=== PATIENT | male | born 1940 | race Caucasian/White ===

== ENCOUNTER 2021-03-06 18:15 | Inpatient (IN) | payer OTHER, MEDICARE ==
[2021-03-06 19:12] VITALS: BMI 25.2
[2021-03-06 21:12] LABS: INR 1.2 (0.83-1.09); PROTHROMBIN TIME (PATIENT) 14.5 SEC (9.7-13.0)
[2021-03-06 21:15] LABS: ACTIVATED PTT 27.8 SECONDS (25.2-36.5)
[2021-03-06 21:17] LABS: BASO % 0.8 % (0-2.0); HEMATOCRIT 23.2 % (35.4-49); HEMOGLOBIN 8.2 GM/dL (11.7-16.9); LYMPH % 11.1 % (8-40); MCH 36.2 pg (25.7-33.7); MCHC 35.3 g/dl (32.0-35.9); MEAN CELL VOLUME 102.6 fl (80-96); MEAN PLT VOLUME 7.1 fl (7.5-11.1); MONO % 8.8 % (3.8-10.2); NEUT % 77.3 % (42.8-82.8); PLATELET COUNT 255 K/MM3 (134-434); RBC 2.26 M/mm3 (4.00-5.60); WHITE BLOOD COUNT 4.3 K/mm3 (4.0-10.0)
[2021-03-06 21:20] LABS: CHLORIDE 102 mmol/L (98-107); SODIUM 136 mmol/L (136-145)
[2021-03-06 21:22] LABS: CALCIUM 8.3 mg/dL (8.5-10.1)
[2021-03-06 21:24] LABS: ANION GAP 5 MMOL/L (8-16); BLOOD UREA NITROGEN 25.9 mg/dL (7-18); CO2 30 mmol/L (21-32); GLUCOSE,RANDOM 92 mg/dL (74-106)
[2021-03-06 21:27] LABS: BILIRUBIN,TOTAL 0.3 mg/dL (0.2-1); CREATININE 0.3 mg/dL (0.55-1.3); SGOT/AST 332 U/L (15-37); SGPT/ALT 477 U/L (13-61); TOT PROT 5.8 g/dl (6.4-8.2)
[2021-03-06 21:29] LABS: ALK PHOS 263 U/L (45-117)
[2021-03-06 22:11] LABS: PH,URINE >= 9.0 (5.0-8.0); URINE APPEARANCE CLEAR; URINE BILIRUBIN NEGATIVE (NEGATIVE); URINE COLOR YELLOW; URINE GLUCOSE (UA) NEGATIVE (NEGATIVE); URINE KETONE NEGATIVE (NEGATIVE); URINE LEUK ESTERASE NEGATIVE (NEGATIVE); URINE NITRITE NEGATIVE (NEGATIVE); URINE PROTEIN NEGATIVE (NEGATIVE); URINE UROBILINOGEN 0.2 mg/dL (0.2-1.0)
[2021-03-06] MEDS ORDERED: methylPREDNISolone NA SUCC 125 MG/2 ML VIAL IVPB ONE (23:02)
[2021-03-06] MEDS ORDERED: methylPREDNISolone NA SUCC 125 MG/2 ML VIAL ONE (23:06)
[2021-03-07 08:10] LABS: BASO % 0.5 % (0-2.0); EOS % 0.7 % (0-4.5); HEMATOCRIT 23.9 % (35.4-49); HEMOGLOBIN 8.5 GM/dL (11.7-16.9); LYMPH % 10.9 % (8-40); MCHC 35.4 g/dl (32.0-35.9); MEAN CELL VOLUME 101.8 fl (80-96); MEAN PLT VOLUME 7.4 fl (7.5-11.1); MONO % 5.5 % (3.8-10.2); NEUT % 82.4 % (42.8-82.8); PLATELET COUNT 279 K/MM3 (134-434); RBC 2.35 M/mm3 (4.00-5.60); RDW 19.8 % (11.9-15.9)
[2021-03-07 08:21] LABS: ALBUMIN 2.1 g/dl (3.4-5.0); CALCIUM 9.1 mg/dL (8.5-10.1)
[2021-03-07 08:22] LABS: BLOOD UREA NITROGEN 21.1 mg/dL (7-18)
[2021-03-07 08:24] LABS: CREATININE 0.2 mg/dL (0.55-1.3)
[2021-03-07 08:25] LABS: BILIRUBIN,TOTAL 0.3 mg/dL (0.2-1)
[2021-03-07] MEDS ORDERED: ASCORBIC ACID 500 MG TABLET (FP) ONE (09:36)
[2021-03-07] MEDS ORDERED: FOLIC ACID 1 MG TABLET (FP) ONE (09:37)
[2021-03-07] MEDS ORDERED: ENOXAPARIN NA (PORCINE) 40 MG/0.4 ML DISP.SYRIN SQ ONE (09:37)
[2021-03-07] MEDS ORDERED: MAGNESIUM OXIDE 400 MG TABLET (FP) ONE (09:37)
[2021-03-07] MEDS ORDERED: DEXAMETHASONE 4 MG TABLET (FP) ONE (09:37)
[2021-03-07] MEDS ORDERED: MULTIVITAMINS (DAILY MVI) TABLET (FP) ONE (09:37)
[2021-03-07] MEDS: ENOXAPARIN NA (PORCINE) 40 MG/0.4 ML DISP.SYRIN SQ SCH (09:58)
[2021-03-07] MEDS: ASCORBIC ACID 500 MG TABLET (FP) PO SCH (09:58)
[2021-03-07] MEDS: levETIRAcetam 500 MG/5 ML ORAL SOLUTION (UNIT-DOSE CUPS) PEG SCH ×2 (09:58→22:58)
[2021-03-07] MEDS: FOLIC ACID 1 MG TABLET (FP) PO SCH (09:58)
[2021-03-07] MEDS: DEXAMETHASONE 4 MG TABLET (FP) PO SCH ×2 (09:58→22:23)
[2021-03-07] MEDS: MAGNESIUM OXIDE 400 MG TABLET (FP) PO SCH (09:58)
[2021-03-07] MEDS: MULTIVITAMINS (DAILY MVI) TABLET (FP) PO SCH (09:58)
[2021-03-07] MEDS: SODIUM CHLORIDE 1 GM TABLET PO SCH (10:31)
[2021-03-07] MEDS: FLUDROCORTISONE ACETATE 0.1 MG TABLET (FP) PO SCH ×2 (10:31→22:23)
[2021-03-07] MEDS: PANTOPRAZOLE SODIUM 40 MG VIAL IVPUSH SCH (16:00)
[2021-03-07] MEDS ORDERED: PANTOPRAZOLE SODIUM 40 MG VIAL ONE (16:14)
[2021-03-07] MEDS ORDERED: ACETAMINOPHEN 650 MG/20.3 ML ORAL SOLUTION (CUPS) PO ONE (17:08)
[2021-03-07] MEDS ORDERED: FAMOTIDINE 20 MG/50 ML IVPB 20 MG/50 ML MG IVPB ONE (18:27)
[2021-03-07] MEDS: FAMOTIDINE 20 MG/50 ML IVPB 20 MG/50 ML MG IVPB SCH ×2 (18:33→22:24)
[2021-03-07] MEDS: PHENYTOIN 100 MG/4 ML U-D CUP PEG SCH (22:57)
[2021-03-08] MEDS: PHENYTOIN 100 MG/4 ML U-D CUP PEG SCH ×2 (04:35→05:02)
[2021-03-08 09:38] LABS: BASO % 0.5 % (0-2.0); EOS % 4.2 % (0-4.5); HEMOGLOBIN 8.5 GM/dL (11.7-16.9); LYMPH % 10.8 % (8-40); MCH 35.6 pg (25.7-33.7); MCHC 35.5 g/dl (32.0-35.9); MEAN CELL VOLUME 100.3 fl (80-96); MEAN PLT VOLUME 7.4 fl (7.5-11.1); NEUT % 75.5 % (42.8-82.8); PLATELET COUNT 296 K/MM3 (134-434); RBC 2.39 M/mm3 (4.00-5.60); RDW 19.6 % (11.9-15.9); WHITE BLOOD COUNT 4.6 K/mm3 (4.0-10.0)
[2021-03-08 10:08] LABS: ALBUMIN 2.1 g/dl (3.4-5.0); BLOOD UREA NITROGEN 16.7 mg/dL (7-18); CALCIUM 8.7 mg/dL (8.5-10.1)
[2021-03-08 10:12] LABS: CREATININE 0.3 mg/dL (0.55-1.3)
[2021-03-08 10:13] LABS: BILIRUBIN,TOTAL 0.3 mg/dL (0.2-1); TOT PROT 5.9 g/dl (6.4-8.2)
[2021-03-08] MEDS ORDERED: PT OWN MED DRAWER 7, Y5N ONE (10:34)
[2021-03-08] MEDS ORDERED: diphenhydrAMINE HCL 25 MG CAPSULE (FP) PO PRN (10:50)
[2021-03-08] MEDS: PANTOPRAZOLE SODIUM 40 MG VIAL IVPUSH SCH (10:54)
[2021-03-08] MEDS: levETIRAcetam 500 MG/5 ML ORAL SOLUTION (UNIT-DOSE CUPS) PEG SCH ×2 (11:06→21:35)
[2021-03-08] MEDS: ASCORBIC ACID 500 MG TABLET (FP) PO SCH (11:06)
[2021-03-08] MEDS: FLUDROCORTISONE ACETATE 0.1 MG TABLET (FP) PO SCH ×2 (11:08→21:36)
[2021-03-08] MEDS: FAMOTIDINE 20 MG/50 ML IVPB 20 MG/50 ML MG IVPB SCH ×2 (11:08→21:35)
[2021-03-08] MEDS: SODIUM CHLORIDE 1 GM TABLET PO SCH (11:08)
[2021-03-08] MEDS: DEXAMETHASONE 4 MG TABLET (FP) PO SCH ×2 (11:08→21:35)
[2021-03-08] MEDS: FOLIC ACID 1 MG TABLET (FP) PO SCH (11:09)
[2021-03-08] MEDS: MAGNESIUM OXIDE 400 MG TABLET (FP) PO SCH (11:09)
[2021-03-08] MEDS: MULTIVITAMINS (DAILY MVI) TABLET (FP) PO SCH (11:09)
[2021-03-08] MEDS: ENOXAPARIN NA (PORCINE) 40 MG/0.4 ML DISP.SYRIN SQ SCH (11:21)
[2021-03-08] MEDS: diphenhydrAMINE HCL 12.5 MG/5 ML UNIT-DOSE CUPS PEG SCH (21:43)
[2021-03-08] MEDS ORDERED: diphenhydrAMINE HCL 12.5 MG/5 ML UNIT-DOSE CUPS PO SCH (22:00)
[2021-03-08] MEDS ORDERED: diphenhydrAMINE HCL 25 MG CAPSULE (FP) PO SCH (22:00)
[2021-03-08] MEDS: FLUDROCORTISONE ACETATE 0.1 MG TABLET (FP) PEG SCH (23:30)
[2021-03-08] MEDS: DEXAMETHASONE 4 MG TABLET (FP) PEG SCH (23:30)
[2021-03-09 10:42] LABS: BASO % 0.6 % (0-2.0); EOS % 3.3 % (0-4.5); HEMATOCRIT 23.2 % (35.4-49); HEMOGLOBIN 8.3 GM/dL (11.7-16.9); LYMPH % 11.6 % (8-40); MCH 35.9 pg (25.7-33.7); MCHC 35.6 g/dl (32.0-35.9); MEAN CELL VOLUME 100.7 fl (80-96); MEAN PLT VOLUME 7.5 fl (7.5-11.1); NEUT % 73.5 % (42.8-82.8); PLATELET COUNT 279 K/MM3 (134-434); RDW 19.7 % (11.9-15.9); WHITE BLOOD COUNT 3.7 K/mm3 (4.0-10.0)
[2021-03-09 10:56] LABS: CALCIUM 8.1 mg/dL (8.5-10.1)
[2021-03-09 10:57] LABS: ALBUMIN 1.9 g/dl (3.4-5.0); BLOOD UREA NITROGEN 13.4 mg/dL (7-18)
[2021-03-09 11:00] LABS: CREATININE 0.3 mg/dL (0.55-1.3)
[2021-03-09 11:01] LABS: TOT PROT 5.6 g/dl (6.4-8.2)
[2021-03-09 11:09] LABS: BILIRUBIN,TOTAL 0.5 mg/dL (0.2-1)
[2021-03-09] MEDS ORDERED: PT OWN MED DRAWER 7, Y5N ONE ×3 (11:24→23:03)
[2021-03-09] MEDS: FAMOTIDINE 20 MG/50 ML IVPB 20 MG/50 ML MG IVPB SCH ×2 (11:41→23:07)
[2021-03-09] MEDS: levETIRAcetam 500 MG/5 ML ORAL SOLUTION (UNIT-DOSE CUPS) PEG SCH ×2 (11:41→23:08)
[2021-03-09] MEDS: SODIUM CHLORIDE 1 GM TABLET PEG SCH (11:42)
[2021-03-09] MEDS: FLUDROCORTISONE ACETATE 0.1 MG TABLET (FP) PEG SCH ×2 (11:42→23:07)
[2021-03-09] MEDS: MAGNESIUM OXIDE 400 MG TABLET (FP) PEG SCH (11:42)
[2021-03-09] MEDS: DEXAMETHASONE 4 MG TABLET (FP) PEG SCH ×2 (11:42→23:06)
[2021-03-09] MEDS: MULTIVIT-MINERALS ORAL LIQUID PO SCH (11:43)
[2021-03-09] MEDS: ENOXAPARIN NA (PORCINE) 40 MG/0.4 ML DISP.SYRIN SQ SCH (11:43)
[2021-03-09] MEDS: ASCORBIC ACID 500 MG/5 ML UNIT DOSE CUP PEG SCH (11:44)
[2021-03-09] MEDS: FOLIC ACID 1 MG TABLET (FP) PEG SCH (11:44)
[2021-03-09 12:07] LABS: HEP B CORE AB, TOT Negative (Negative)
[2021-03-09] MEDS: GABAPENTIN 250 MG/5 ML ORAL SOLUTION, 470 ML BOTTLE GT SCH ×2 (14:53→23:07)
[2021-03-09] MEDS ORDERED: ACETAMINOPHEN 1000 MG/100 ML VIAL (NON FORMULARY) IVPB ONE (18:13)
[2021-03-09] MEDS ORDERED: PHENYTOIN NA EXTENDED 100 MG CAPSULE (FP) PO SCH (22:00)
[2021-03-09] MEDS ORDERED: PHENYTOIN 100 MG/4 ML U-D CUP PEG SCH (22:00)
[2021-03-09] MEDS: diphenhydrAMINE HCL 12.5 MG/5 ML UNIT-DOSE CUPS PEG SCH (23:25)
[2021-03-10 03:06] LABS: FIBROSIS SCORE. 0.41 (0.00-0.21); HCV ALPHA 2 MACRO CHART 216 mg/dL (110-276); NECRO.INFLAM ACT.SCORE 0.95 (0.00-0.17); NECROINFLAM. ACTIVITY GRADE A3-Severe activity (.)
[2021-03-10] MEDS: GABAPENTIN 250 MG/5 ML ORAL SOLUTION, 470 ML BOTTLE GT SCH ×3 (05:12→22:48)
[2021-03-10] MEDS ORDERED: PT OWN MED DRAWER 7, Y5N ONE ×3 (07:30→22:46)
[2021-03-10] MEDS: AMINO ACIDS/PROTEIN HYDROLYS 30 ML LIQUID.PKT GT SCH (09:15)
[2021-03-10 09:53] LABS: BASO % 0.4 % (0-2.0); EOS % 2.2 % (0-4.5); HEMATOCRIT 23.3 % (35.4-49); HEMOGLOBIN 8.2 GM/dL (11.7-16.9); LYMPH % 10.3 % (8-40); MCH 35.7 pg (25.7-33.7); MCHC 35.2 g/dl (32.0-35.9); MEAN CELL VOLUME 101.5 fl (80-96); MEAN PLT VOLUME 7.7 fl (7.5-11.1); NEUT % 77.1 % (42.8-82.8); PLATELET COUNT 310 K/MM3 (134-434); RBC 2.29 M/mm3 (4.00-5.60); RDW 19.5 % (11.9-15.9); WHITE BLOOD COUNT 4.5 K/mm3 (4.0-10.0)
[2021-03-10] MEDS: ENOXAPARIN NA (PORCINE) 40 MG/0.4 ML DISP.SYRIN SQ SCH (10:10)
[2021-03-10] MEDS: FOLIC ACID 1 MG TABLET (FP) PEG SCH (10:10)
[2021-03-10] MEDS: MAGNESIUM OXIDE 400 MG TABLET (FP) PEG SCH (10:11)
[2021-03-10] MEDS: SODIUM CHLORIDE 1 GM TABLET PEG SCH ×2 (10:11→22:48)
[2021-03-10] MEDS: DEXAMETHASONE 4 MG TABLET (FP) PEG SCH ×2 (10:11→22:48)
[2021-03-10] MEDS: FLUDROCORTISONE ACETATE 0.1 MG TABLET (FP) PEG SCH ×2 (10:11→22:48)
[2021-03-10] MEDS: levETIRAcetam 500 MG/5 ML ORAL SOLUTION (UNIT-DOSE CUPS) PEG SCH ×2 (10:11→22:47)
[2021-03-10] MEDS: FAMOTIDINE 20 MG/50 ML IVPB 20 MG/50 ML MG IVPB SCH ×2 (10:11→22:48)
[2021-03-10] MEDS: ASCORBIC ACID 500 MG/5 ML UNIT DOSE CUP PEG SCH (10:11)
[2021-03-10] MEDS: MULTIVIT-MINERALS ORAL LIQUID PO SCH (10:12)
[2021-03-10 10:16] LABS: ALBUMIN 2.1 g/dl (3.4-5.0); BLOOD UREA NITROGEN 14.7 mg/dL (7-18); CALCIUM 8.4 mg/dL (8.5-10.1)
[2021-03-10 10:19] LABS: CREATININE 0.3 mg/dL (0.55-1.3)
[2021-03-10 10:21] LABS: BILIRUBIN,TOTAL 0.2 mg/dL (0.2-1)
[2021-03-10] MEDS ORDERED: ALBUTEROL SO4 2.5/IPRATROPIUM 0.5 INH SOL 3 ML VIAL.NEB. NEB ONE (14:41)
[2021-03-10] MEDS ORDERED: ALBUTEROL SO4 2.5/IPRATROPIUM 0.5 INH SOL 3 ML VIAL.NEB. NEB PRN (14:41)
[2021-03-10] MEDS: diphenhydrAMINE HCL 12.5 MG/5 ML UNIT-DOSE CUPS PEG SCH (22:49)
[2021-03-11] MEDS: GABAPENTIN 250 MG/5 ML ORAL SOLUTION, 470 ML BOTTLE GT SCH ×3 (05:14→21:46)
[2021-03-11] MEDS ORDERED: IRON SUCROSE INJECTION 200 MG in SODIUM CHLORIDE 90 ML IVPB ONE (08:00)
[2021-03-11 08:44] LABS: BASO % 0.5 % (0-2.0); EOS % 1.4 % (0-4.5); HEMATOCRIT 20.5 % (35.4-49); HEMOGLOBIN 7.3 GM/dL (11.7-16.9); LYMPH % 14.4 % (8-40); MCHC 35.7 g/dl (32.0-35.9); MEAN CELL VOLUME 100.9 fl (80-96); MEAN PLT VOLUME 7.3 fl (7.5-11.1); MONO % 12.1 % (3.8-10.2); NEUT % 71.6 % (42.8-82.8); PLATELET COUNT 287 K/MM3 (134-434); RBC 2.04 M/mm3 (4.00-5.60); RDW 19.7 % (11.9-15.9); WHITE BLOOD COUNT 4.2 K/mm3 (4.0-10.0)
[2021-03-11 09:01] LABS: ALBUMIN 1.8 g/dl (3.4-5.0); BLOOD UREA NITROGEN 18.3 mg/dL (7-18); CALCIUM 8.6 mg/dL (8.5-10.1)
[2021-03-11 09:05] LABS: CREATININE 0.3 mg/dL (0.55-1.3)
[2021-03-11 09:06] LABS: BILIRUBIN,TOTAL 0.2 mg/dL (0.2-1); TOT PROT 5.4 g/dl (6.4-8.2)
[2021-03-11] MEDS ORDERED: PT OWN MED DRAWER 7, Y5N ONE ×2 (09:38→21:30)
[2021-03-11] MEDS: SODIUM CHLORIDE 1 GM TABLET PEG SCH ×2 (09:42→21:41)
[2021-03-11] MEDS: FLUDROCORTISONE ACETATE 0.1 MG TABLET (FP) PEG SCH ×2 (09:42→21:41)
[2021-03-11] MEDS: AMINO ACIDS/PROTEIN HYDROLYS 30 ML LIQUID.PKT GT SCH (09:42)
[2021-03-11] MEDS: ENOXAPARIN NA (PORCINE) 40 MG/0.4 ML DISP.SYRIN SQ SCH (09:42)
[2021-03-11] MEDS: FOLIC ACID 1 MG TABLET (FP) PEG SCH (09:42)
[2021-03-11] MEDS: DEXAMETHASONE 4 MG TABLET (FP) PEG SCH ×2 (09:42→21:41)
[2021-03-11] MEDS: MAGNESIUM OXIDE 400 MG TABLET (FP) PEG SCH (09:42)
[2021-03-11] MEDS: levETIRAcetam 500 MG/5 ML ORAL SOLUTION (UNIT-DOSE CUPS) PEG SCH ×2 (09:43→21:42)
[2021-03-11] MEDS: ASCORBIC ACID 500 MG/5 ML UNIT DOSE CUP PEG SCH (09:43)
[2021-03-11] MEDS: MULTIVIT-MINERALS ORAL LIQUID PO SCH (09:43)
[2021-03-11] MEDS ORDERED: FUROSEMIDE 40 MG/4 ML INJECTABLE VIAL IVPUSH ONE (12:11)
[2021-03-11] MEDS: FAMOTIDINE 20 MG/50 ML IVPB 20 MG/50 ML MG IVPB SCH ×2 (12:12→21:46)
[2021-03-11] MEDS: diphenhydrAMINE HCL 12.5 MG/5 ML UNIT-DOSE CUPS PEG SCH (21:42)
[2021-03-12] MEDS ORDERED: PT OWN MED DRAWER 7, Y5N ONE ×3 (06:10→13:59)
[2021-03-12] MEDS ORDERED: FUROSEMIDE 40 MG/4 ML INJECTABLE VIAL IVPUSH ONE (06:30)
[2021-03-12] MEDS: GABAPENTIN 250 MG/5 ML ORAL SOLUTION, 470 ML BOTTLE GT SCH ×3 (06:39→14:49)
[2021-03-12 09:56] LABS: BLOOD UREA NITROGEN 15.9 mg/dL (7-18); CALCIUM 8.9 mg/dL (8.5-10.1)
[2021-03-12 09:57] LABS: MAGNESIUM 1.6 mg/dL (1.8-2.4)
[2021-03-12 09:58] LABS: CREATININE 0.3 mg/dL (0.55-1.3)
[2021-03-12 10:00] LABS: PHOSPHOROUS 3.2 mg/dL (2.5-4.9)
[2021-03-12] MEDS ORDERED: FAMOTIDINE 40 MG/5 ML ORAL SUSPENSION PEG SCH (12:45)
[2021-03-12] MEDS: SODIUM CHLORIDE 1 GM TABLET PEG SCH (12:56)
[2021-03-12] MEDS: FLUDROCORTISONE ACETATE 0.1 MG TABLET (FP) PEG SCH (12:56)
[2021-03-12] MEDS: levETIRAcetam 500 MG/5 ML ORAL SOLUTION (UNIT-DOSE CUPS) PEG SCH (12:56)
[2021-03-12] MEDS: MAGNESIUM OXIDE 400 MG TABLET (FP) PEG SCH (12:56)
[2021-03-12] MEDS: DEXAMETHASONE 4 MG TABLET (FP) PEG SCH (12:56)
[2021-03-12] MEDS: FOLIC ACID 1 MG TABLET (FP) PEG SCH (12:56)
[2021-03-12] MEDS: AMINO ACIDS/PROTEIN HYDROLYS 30 ML LIQUID.PKT GT SCH (12:56)
[2021-03-12] MEDS: ASCORBIC ACID 500 MG/5 ML UNIT DOSE CUP PEG SCH (12:57)
[2021-03-12] MEDS: ENOXAPARIN NA (PORCINE) 40 MG/0.4 ML DISP.SYRIN SQ SCH (12:57)
[2021-03-12] MEDS: MULTIVIT-MINERALS ORAL LIQUID PO SCH (12:57)
[2021-03-12 13:15] LABS: BASO % 0.3 % (0-2.0); EOS % 1.1 % (0-4.5); HEMATOCRIT 33.7 % (35.4-49); HEMOGLOBIN 11.6 GM/dL (11.7-16.9); LYMPH % 12.8 % (8-40); MCH 32.9 pg (25.7-33.7); MCHC 34.5 g/dl (32.0-35.9); MEAN CELL VOLUME 95.3 fl (80-96); MEAN PLT VOLUME 7.5 fl (7.5-11.1); MONO % 10.4 % (3.8-10.2); NEUT % 75.4 % (42.8-82.8); PLATELET COUNT 319 K/MM3 (134-434); RBC 3.54 M/mm3 (4.00-5.60); RDW 19.1 % (11.9-15.9); WHITE BLOOD COUNT 6.3 K/mm3 (4.0-10.0)
[2021-03-12] MEDS: FAMOTIDINE 20 MG/50 ML IVPB 20 MG/50 ML MG IVPB SCH (13:16)
[2021-03-12 13:38] LABS: BILIRUBIN,DIRECT 0.2 mg/dL (0.0-0.2)
[2021-03-12 13:40] LABS: BILIRUBIN,TOTAL 0.3 mg/dL (0.2-1); TOT PROT 6.6 g/dl (6.4-8.2)
[2021-03-12 13:46] LABS: ALBUMIN 2.2 g/dl (3.4-5.0)
[2021-03-12 15:03] VITALS: BP 136/82; PULSE 88; TEMP 99.1
== END 2021-03-12 17:00 | DRG 441 ==
LOC: JER 18:15 → JERBED 21:44 → J5S 03-07 22:08
PROVIDERS: ADMIT Internal Medicine; ATTEND Family Medicine
PROC: 5A1955Z Respiratory Ventilation, Greater than 96 Consecutive Hours (ICD-10-PCS; principal; 2021-03-11)
PROC: 30233N1 Transfusion of Nonautologous Red Blood Cells into Peripheral Vein, Percutaneous Approach (ICD-10-PCS; 2021-03-12)
DX: K71.9 Toxic liver disease, unspecified (principal); R53.2 Functional quadriplegia; J96.10 Chronic respiratory failure, unspecified whether with hypoxia or hypercapnia; R64 Cachexia; E87.1 Hypo-osmolality and hyponatremia; R74.8 Abnormal levels of other serum enzymes; L27.0 Generalized skin eruption due to drugs and medicaments taken internally; Z93.0 Tracheostomy status; Z93.1 Gastrostomy status; Z85.21 Personal history of malignant neoplasm of larynx; D64.9 Anemia, unspecified; T42.0X5A Adverse effect of hydantoin derivatives, initial encounter; D72.819 Decreased white blood cell count, unspecified; R74.01 Elevation of levels of liver transaminase levels; Z68.25 Body mass index [BMI] 25.0-25.9, adult
CPT/HCPCS: 36415; 36430; 71045-TC-FY; 71250-TC; 76705-TC; 80048; 80053; 80076; 80177; 80185; 81003; 82172; 82533; 82550; 82607; 82728; 82746; 82977; 83010; 83540; 83550; 83605; 83735; 83883; 83930; 83935; 84100; 84300; 84443; 84460; 84484; 85025; 85610; 85730; 86704; 86706; 86707; 86708; 86709; 86803; 86850; 86870; 86900; 86901; 86902; 86922; 87040; 87070; 87086; 87186; 87205; 87340; 87350; 93005; 93010; 94002; 94640; 97162-GP; 99285-25; C9803; J0131; J1756; P9058; U0003; U0005